=== PATIENT | male | born 1985 | race Caucasian/White ===

== ENCOUNTER 2022-08-15 12:58 | Emergency (ER) | payer BC ==
[2022-08-15] MEDS ORDERED: Lidocaine 1% 5 ML VIAL INJECT ONE (14:29)
[2022-08-15] MEDS ORDERED: Bupivacaine 0.25% 10 ML SDV INJECT ONE (14:29)
[2022-08-15] MEDS ORDERED: Bacitracin Oint 1 GM U/D Packet TOP ONE (14:30)
[2022-08-15] MEDS ORDERED: Diphtheria,Pertussis(Acell),Tetanus Vaccine 0.5 ML Syringe IM ONE (15:27)
== END 2022-08-15 15:50 | disposition home or self-care (01) ==
LOC: MW.ED 12:58
DX: S61.211A Laceration without foreign body of left index finger without damage to nail, initial encounter (principal); Z23 Encounter for immunization; W26.8XXA Contact with other sharp object(s), not elsewhere classified, initial encounter
CPT/HCPCS: 12001; 90471; 90715; 99282; J3490